=== PATIENT | female | born 1985 | race African-American/Black ===

== ENCOUNTER → 2016-07-24 | Outpatient (CLI) | payer BC, MEDICAID ==
[~2016-07-24] MED LIST: ACHYD1T PO; FRS325T PO; IBP800T PO; NITR-68 PO; PREN-115 PO
--- NOTE | 2016-07-24 17:35 | Diagnostic Imaging Report ---
INDICATION: survey. FINDINGS: Single live intrauterine fetus. Fetus is vertex. Fetus is active with heart rate of 144 beats per minute. Amniotic fluid index is normal. Placenta is posterior with no evidence of abruption or previa. Cervical length is 4.6 cm. anatomical survey is normal. biometric measurements are BPD 4.36 cm, head circumference 17.21 cm, abdominal circumference 14.25 cm, and femur length 3.21 cm. Estimated weight of 312 g. IMPRESSION: 1. Single live intrauterine fetus in vertex presentation with no abnormalities demonstrated. 2. Estimated gestational age by previous ultrasound reported to be 20 weeks 0 days. Current ultrasound is average for 19 week 5 days. Estimated date of delivery by previous reported ultrasound is 12/11/2016. Dictated by: Dictated on workstation # [id number]
== END ==
LOC: RAD 13:02
PROVIDERS: ATTEND Obstetrics & Gynecology
DX: Z34.92 Encounter for supervision of normal pregnancy, unspecified, second trimester (principal)
CPT/HCPCS: 76805; 76817

== ENCOUNTER → 2016-10-29 | Outpatient (CLI) | payer MEDICAID ==
--- NOTE | 2016-10-29 17:51 | Diagnostic Imaging Report ---
INDICATION: Followup growth TECHNIQUE: Multiple real-time grayscale images were obtained over the gravid uterus. COMPARISON: FINDINGS: heart rate is 142 beats per minute. The placenta is fundal. No placenta previa. The amniotic fluid index is 11.3 cm. Biometrical measurements are as follows: Biparietal 8.6 cm, age 34 weeks 5 days. Head circumference 30.78 cm, age 34 weeks 3 days. Abdominal circumference 29.67 cm, age 33 weeks 5 days. Femur length 7.00 cm, age 36 weeks 0 days. Sonographic estimate age: 34 weeks 5 days. This compares to a gestational age of 33 weeks and 6 days based on assigned SAM of 12/11/16. Sonographic estimated date of delivery: 12-05-16. Estimated Weight: 2435 gm (+/- 356 gm). LMP percentile: 62%. heart rate: 142 beats per minute. number: 1 of 1. IMPRESSION: Live intrauterine . Appropriate interval growth. Dictated by: Dictated on workstation # [id number]
== END ==
LOC: RAD 10:10
PROVIDERS: ATTEND Obstetrics & Gynecology
DX: O24.410 Gestational diabetes mellitus in pregnancy, diet controlled (principal); O26.843 Uterine size-date discrepancy, third trimester; Z3A.34 34 weeks gestation of pregnancy
CPT/HCPCS: 76816

== ENCOUNTER → 2016-11-13 | Outpatient (CLI) | payer MEDICAID ==
[~2016-11-13] MED LIST changes: +HYDR-3812 PO; +IBUP-1773 PO; +METF500T4 PO; +PREN-37 PO
[2016-11-13 15:15] VITALS: BP 131/81
--- NOTE | 2016-11-13 17:31 | Diagnostic Imaging Report ---
TECHNIQUE: Multiple real-time grayscale images were obtained over the gravid uterus. COMPARISON: None. INDICATION: Maternal gestational diabetes. FINDINGS: Ultrasonography reveals morris intrauterine gestation. Fetus is in a cephalic presentation with amniotic fluid index of 13 cm. There is no evidence of placenta previa or other placental abnormality. cardiac activity is present with a rate of 156 beats per minute. There is breathing motion and tone present. There is movement of limbs. Bladder distention is documented. Biometrical measurements are as follows: Biparietal 8.9 cm, age 36 weeks 0 days. Head circumference 32.0 cm, age 36 weeks 1 days. Abdominal circumference 32.6 cm, age 36 weeks 4 days. Femur length 7.1 cm, age 36 weeks 2 days. Sonographic estimate age: 36 weeks 2 days. Sonographic estimated date of delivery: 12/09/16. Estimated Weight: 2904 gm (+/- 424 gm). LMP percentile: 60%. heart rate: 156 beats per minute. number: 1 of 1. IMPRESSION: Normal biophysical profile score of 8/8. Dictated by: Dictated on workstation # [id number]
== END ==
LOC: RAD 14:02
PROVIDERS: ATTEND Obstetrics & Gynecology
DX: O24.410 Gestational diabetes mellitus in pregnancy, diet controlled (principal); O34.219 Maternal care for unspecified type scar from previous cesarean delivery; Z3A.36 36 weeks gestation of pregnancy
CPT/HCPCS: 76805; 76819

== ENCOUNTER 2016-12-01 12:41 | Outpatient (CLI) | payer MEDICAID ==
[~2016-12-01] VITALS: Ht 177.8 cm; Wt 109.3 kg
[~2016-12-01 12:41] MED LIST changes: -HYDR-3812 PO; -IBUP-1773 PO; -METF500T4 PO; -PREN-37 PO
[2016-12-01] MEDS ORDERED: PREN-37 PO (12:48)
[2016-12-01] MEDS ORDERED: METF500T4 PO (12:48)
[2016-12-01 12:56] VITALS: BP 131/91
== END 2016-12-01 13:00 | disposition home or self-care (01) ==
LOC: PREOP 12:41
PROVIDERS: ATTEND Obstetrics & Gynecology
DX: O34.219 Maternal care for unspecified type scar from previous cesarean delivery (principal); Z3A.00 Weeks of gestation of pregnancy not specified
CPT/HCPCS: 87081

== ENCOUNTER 2016-12-04 06:16 | Inpatient (IN) | payer MEDICAID ==
[~2016-12-04] VITALS: Ht 177.8 cm; Wt 108.0 kg
[~2016-12-04 06:16] MED LIST changes: +CITRIC ACID/SOB CIT (BICITRA) 30 ML UDC ONE; +FAMOTIDINE 20MG/2ML IV (PEPCID) ONE; +LACTATED RINGERS 1,000 ML IV ONE; +METF500T4 PO; +METOCLOPRAMIDE INJ 10 MG/2 ML (REGLAN) ONE; +NS (IVPB) 50 ML ONE; +PREN-37 PO; +ceFAZolin 1,000 MG (ANCEF) VIAL ONE
--- OUTSIDE RECORDS SUMMARY | 2016-12-04 06:20 | XMS REPORT ---
Author Author CHRISTIANO LOWERY [facility] eClinicalWorks Address Unknown Phone Unavailable Care Team Providers Care Bleach Tester Name Role Phone CHRISTIANO LOWERY CP Unavailable Allergies, Adverse Reactions, Alerts Substance Reaction Event Type N.K.D.A. Info Not Available Non Drug Allergy Problems Problem Type Condition Code Onset Dates Condition Status Problem Anxiety state, unspecified 300.00 Active Problem Family history of diabetes mellitus V18.0 Active Problem General counseling for initiation of other contraceptive measures V25.02 Active Problem Other, multiple, and unspecified sites, superficial foreign body ( splinter), without major open wound and without mention of infection 919.6 Active Assessment Pre-employment health screening examination Z02.1 Active Medications No Known Medications Procedures Procedure Coding System Code Date Office Visit, Est Pt., Level 2 CPT-4 55060 Dec 31, 2015 TB INTRADERMAL TEST CPT-4 08108 Dec 31, 2015 Vital Signs Date/Time: Dec 31, 2015 Cardiac Monitoring Heart Rate 76 bpm Weight 226.9 lbs Height 70 in BMI 32.55 Index Blood Pressure Diastolic 78 mmHg Blood Pressure Systolic 136 mmHg Results Name Result Date Reference Range Unit Abnormality Flag TB INTRADERMAL ----INDURATION (mm) 0 20160103 0 - 15 mm ----Time Read 1430 20160103 ----Date read 01/03/201620160103 ----Injected by Annel JORDAN 20160103 ----Exp. date 20160103 ----Read by Annel JORDAN 20160103 ----Date injected 12/31/201520160103 ----RESULTS (Pos/Neg) Negative 20160103 ----Time Injected 1530 20160103 ----Site Right Forearm 20160103 ----Lot # [id number] Summary Purpose eClinicalWorks Submission
[2016-12-04] MEDS ORDERED: LACTATED RINGERS 1,000 ML IV PRN (06:29)
[2016-12-04] MEDS ORDERED: CATHETER FLUSH 10 ML SYR IV PRN ×2 (06:30→07:30)
[2016-12-04] MEDS ORDERED: METOCLOPRAMIDE INJ 10 MG/2 ML (REGLAN) IV ONE ×2 (06:30→07:30)
[2016-12-04] MEDS ORDERED: FAMOTIDINE 20MG/2ML IV (PEPCID) IV ONE ×2 (06:30→07:30)
[2016-12-04] MEDS ORDERED: CITRIC ACID/SOB CIT (BICITRA) 30 ML UDC PO ONE ×2 (06:30→07:30)
[2016-12-04 07:02] LABS: BASOPHILS % (AUTO) 0 % (0-10); EOSINOPHILS # (AUTO) 0.1 10^3/uL (0.0-0.3); EOSINOPHILS % (AUTO) 1 % (0-10); LYMPHOCYTES # (AUTO) 1.9 X 10^3 (1.0-4.0); LYMPHOCYTES % (AUTO) 23 % (12-44); MEAN CORPUSCULAR HEMOGLOBIN 28 PG (25-34); MEAN CORPUSCULAR HGB CONC 33 G/DL (32-36); MEAN CORPUSCULAR VOLUME 83 FL (80-99); MEAN PLATELET VOLUME 9.8 FL (7.4-10.4); MONOCYTES # (AUTO) 1.2 X 10^3 (0.0-1.0); MONOCYTES % (AUTO) 14 % (0-12); NEUTROPHILS # (AUTO) 5.2 X 10^3 (1.8-7.8); NEUTROPHILS % (AUTO) 62 % (42-75); PLATELET COUNT 219 10^3/uL (130-400); RED BLOOD COUNT 4.86 10^6/uL (4.35-5.85); RED CELL DISTRIBUTION WIDTH 14.9 % (10.0-14.5); WHITE BLOOD COUNT 8.4 10^3/uL (4.3-11.0)
[2016-12-04] MEDS ORDERED: LACTATED RINGERS 1,000 ML IV ONE (07:24)
[2016-12-04] MEDS ORDERED: OXYTOCIN/NORMAL SALINE 1,000 ML IV ONE (07:25)
[2016-12-04] MEDS ORDERED: fentaNYL INJECTION 100 MCG/2 ML AMP INJ ONE (07:30)
[2016-12-04] MEDS ORDERED: diphenhydrAMINE 50 MG/ML INJ (BENADRYL) IV PRN (07:30)
[2016-12-04] MEDS ORDERED: ONDANSETRON 4 MG/2 ML (SDV) Z0FRAN IV PRN (07:30)
[2016-12-04] MEDS ORDERED: METOCLOPRAMIDE INJ 10 MG/2 ML (REGLAN) IV PRN (07:30)
[2016-12-04] MEDS ORDERED: NALOXONE 0.4 MG/ML 1 ML (NARCAN) VIAL IV PRN ×2 (07:30)
--- NOTE | 2016-12-04 07:40 | Progress Note-Pre Operative ---
Pre-Operative Progress Note H&P Reviewed The H&P was reviewed, patient examined and no changes noted. Date Seen by Provider: Dec 04, 2016 Time Seen by Provider: 07:35 Date H&P Reviewed: Dec 04, 2016 Time H&P Reviewed: 07:25 Pre-Operative Diagnosis: previous section, gestational diabetes, A2 ( metformin) RONY SAUCEDA DO Dec 04, 2016 07:40
[2016-12-04] MEDS ORDERED: ceFAZolin INJECTION 1,000 MG in NS (IVPB) 50 ML IV ONE (07:45)
[2016-12-04 07:50] LABS: BILIRUBIN,URINE NEGATIVE (NEGATIVE); KETONES,URINE 3+ (NEGATIVE); LEUKOCYTE ESTERASE ,URINE 2+ (NEGATIVE); NITRITE,URINE NEGATIVE (NEGATIVE); PH,URINE 6.5 (5-9); PROTEIN,URINE NEGATIVE (NEGATIVE); UROBILINOGEN,URINE NORMAL (NORMAL)
[2016-12-04] MEDS ORDERED: MISOPROSTOL 100 MCG (CYTOTEC) TAB PV NR (08:15)
[2016-12-04] MEDS ORDERED: OXYTOCIN/NORMAL SALINE 500 ML IV SCH (09:08)
--- NOTE | 2016-12-04 09:08 | Cesarean Section Operative ---
Procedure Procedure Note Pre-operative Diagnosis: Shey Damon is a 31 /Para 3/2 , Gestational Age 39 weeks with history of previous section, Gestaional diabetes, A2 Post-operative Diagnosis: same Procedure: Repeat low transverse section Physician: RONY SAUCEDA Estimated blood loss: 450 mL Disposition: stable Findings: Viable female , Apgars 8/9, weight 7#10oz, intact placenta, 3vc, normal appearing uterus, tubes, and ovaries. Indications:Shey Damon is a 31 /Para 3/2 ,Gestational Age 39 weeks with history of previous section, Gestaional diabetes, A2 fasting blood sugar 92 Procedure Details: The patient was seen in pre-op and the procedure was discussed with the patient in full, including the risks, benefits, and alternatives. All questions were answered. The patient was taken to the operating room and a time out was performed, verifying patient and procedure. After spinal anesthesia was placed by our anesthesia colleagues, the patient was placed in the dorsal supine with leftward tilt for uterine displacement.~ Her abdomen was then prepped and draped in the typical sterile fashion. A Pfannenstiel skin incision was made using a scalpel and carried down through the underlying fascia. The fascia was incised in the midline and tented up using Karri clamps. On both the inferior and superior fascia side the rectus muscle was dissected off bluntly and sharply using Jara scissors. The peritoneum was identified and entered bluntly in the midline. This was then stretched laterally using manual strength. After entering the abdominal cavity and confirming lack of intraperitoneal adhesions, an extra large Dimitri retractor was placed and the lower uterine segment was visualized. A scalpel was utilized to make a low transverse uterine incision. Amniotomy was performed with an Allis clamp with return of clear fluid. The 's head was grasped and brought to the level of the incision. A silastic suction was placed and helped to facilitate the head delivery. Fundal pressure was applied and infant was delivered without difficulty. Mouth and nares were suctioned with bulb suction. After the umbilical cord was clamped and cut, the infant was handed off to the pediatric staff. A sample of cord blood was then obtained. The placenta was delivered intact via uterine massage. The uterus was cleared of all clots and debris. The uterine incision was closed using 0 Vicryl in a running fashion. A second imbricated layer was placed using 0 Vicryl in a running fashion as well. The bilateral tubes and ovaries appeared normal. The abdominal gutters were cleared of all clots and debris. A final check of the uterine incision showed it to be hemostatic. The peritoneum was closed using 3- 0 Vicryl in a running fashion. The fascia was closed with 0 Vicryl in a running fashion. The subcutaneous space was hemostatic, and irrigated. The subcutaneous space was closed with 3-0 Vicryl in several single interrupted stitches. The skin was then closed using 4-0 Monocryl in a running subcuticular fashion. The skin edges were reapproximated together and were hemostatic. A pressure dressing was applied. All sponge, lap and needle counts were correct at the end of the procedure per nursing. Vitals - Labs Vital Signs - I&O I & O 12/05/16 07:00 Intake Total 50 ml Balance 50 ml Labs Laboratory Tests 12/04/16 06:35: White Blood Count 8.4, Red Blood Count 4.86, Hemoglobin 13.4, Hematocrit 40, Mean Corpuscular Volume 83, Mean Corpuscular Hemoglobin 28, Mean Corpuscular Hemoglobin Concent 33, Red Cell Distribution Width 14.9H, Platelet Count 219, Mean Platelet Volume 9.8, Neutrophils (%) (Auto) 62, Lymphocytes (%) (Auto) 23, Monocytes (%) (Auto) 14H, Eosinophils (%) (Auto) 1, Basophils (%) (Auto) 0, Neutrophils # (Auto) 5.2, Lymphocytes # (Auto) 1.9, Monocytes # (Auto) 1.2H, Eosinophils # (Auto) 0.1, Basophils # (Auto) 0.0 12/04/16 07:35: Urine Color YELLOW, Urine Clarity SLIGHTLY CLOUDY, Urine pH 6.5, Urine Specific Graham 1.010L, Urine Protein NEGATIVE, Urine Glucose (UA) NEGATIVE, Urine Ketones 3+H, Urine Nitrite NEGATIVE, Urine Bilirubin NEGATIVE, Urine Urobilinogen NORMAL, Urine Leukocyte Esterase 2+H, Urine RBC (Auto) NEGATIVE, Urine RBC RARE, Urine WBC 2-5, Urine Squamous Epithelial Cells 5-10, Urine Crystals NONE, Urine Bacteria TRACE, Urine Casts NONE, Urine Mucus NEGATIVE, Urine Culture Indicated NO RONY SAUCEDA DO Dec 04, 2016 09:08
[2016-12-04] MEDS ORDERED: HYDROmorphone (DILAUDID) 2 MG/ML VIAL IVP PRN (09:15)
[2016-12-04] MEDS ORDERED: NS IV 1000 ML 1,000 ML IV SCH (09:15)
[2016-12-04] MEDS ORDERED: TETANUS,DIPTH,PERTUSS P/F (BOOSTRIX) 0.5 ML VIAL IM SCH (09:15)
[2016-12-04] MEDS ORDERED: MEASLES,MUMPS,RUBELLA 1 EA INJ SC SCH (09:15)
[2016-12-04 10:28] VITALS: BP 123/73
[2016-12-04 10:42] VITALS: BP 125/77
[2016-12-04 11:10] VITALS: BP 122/72
[2016-12-04 11:40] VITALS: BP 116/78
[2016-12-04] MEDS: KETOROLAC 30 MG/ML VIAL IVP SCH ×2 (11:44→17:41)
[2016-12-04] MEDS: CATHETER FLUSH 10 ML SYR IV SCH (13:10)
[2016-12-04] MEDS: HYDROcodone/APAP 5 MG/325 MG (LORTAB) TAB PO PRN ×2 (15:36→22:18)
[2016-12-04 16:30] VITALS: BP 126/82
[2016-12-04 21:33] VITALS: BP 122/81
[2016-12-04] MEDS: DOCUSATE SODIUM 100 MG (COLACE) CAP PO SCH (22:18)
[2016-12-05 00:20] VITALS: BP 117/74
[2016-12-05] MEDS: KETOROLAC 30 MG/ML VIAL IVP SCH (00:24)
[2016-12-05] MEDS ORDERED: IBUPROFEN 600 MG (MOTRIN) TAB PO ONE (00:33)
[2016-12-05 05:45] VITALS: BP 124/80
[2016-12-05] MEDS: IBUPROFEN 600 MG (MOTRIN) TAB PO SCH ×3 (05:45→18:20)
[2016-12-05] MEDS: DOCUSATE SODIUM 100 MG (COLACE) CAP PO SCH ×2 (07:58→20:50)
[2016-12-05] MEDS: HYDROcodone/APAP 5 MG/325 MG (LORTAB) TAB PO PRN ×2 (07:59→17:14)
[2016-12-05 08:13] LABS: BASOPHILS % (AUTO) 0 % (0-10); EOSINOPHILS # (AUTO) 0.1 10^3/uL (0.0-0.3); EOSINOPHILS % (AUTO) 1 % (0-10); LYMPHOCYTES % (AUTO) 17 % (12-44); MEAN CORPUSCULAR HEMOGLOBIN 28 PG (25-34); MEAN CORPUSCULAR HGB CONC 33 G/DL (32-36); MEAN CORPUSCULAR VOLUME 84 FL (80-99); MEAN PLATELET VOLUME 9.5 FL (7.4-10.4); MONOCYTES % (AUTO) 9 % (0-12); NEUTROPHILS # (AUTO) 8.6 X 10^3 (1.8-7.8); NEUTROPHILS % (AUTO) 73 % (42-75); PLATELET COUNT 205 10^3/uL (130-400); RED BLOOD COUNT 4.56 10^6/uL (4.35-5.85); RED CELL DISTRIBUTION WIDTH 14.9 % (10.0-14.5); WHITE BLOOD COUNT 11.8 10^3/uL (4.3-11.0)
--- NOTE | 2016-12-05 10:44 | Postpartum Progress Note ---
Post Op Post-operative Day #1 s/p RLTCS, GDM A2 Subjective: Patient is without complaints. Ambulating, voiding after fogey removed. Tolerating a regular diet without nausea or vomiting. Normal lochia. Pain is well controlled with oral pain medications. Passing flatus. breast feeding. Objective: Laboratory Tests Test 12/05/16 08:05 Range/Units White Blood Count 11.8 H 4.3-11.0 10^3/uL Red Blood Count 4.56 4.35-5.85 10^6/uL Hemoglobin 12.6 11.5-16.0 G/DL Hematocrit 38 35-52 % Mean Corpuscular Volume 84 80-99 FL Mean Corpuscular Hemoglobin 28 25-34 PG Mean Corpuscular Hemoglobin Concent 33 32-36 G/DL Red Cell Distribution Width 14.9 H 10.0-14.5 % Platelet Count 205 130-400 10^3/uL Mean Platelet Volume 9.5 7.4-10.4 FL Neutrophils (%) (Auto) 73 42-75 % Lymphocytes (%) (Auto) 17 12-44 % Monocytes (%) (Auto) 9 0-12 % Eosinophils (%) (Auto) 1 0-10 % Basophils (%) (Auto) 0 0-10 % Neutrophils # (Auto) 8.6 H 1.8-7.8 X 10^3 Lymphocytes # (Auto) 2.0 1.0-4.0 X 10^3 Monocytes # (Auto) 1.0 0.0-1.0 X 10^3 Eosinophils # (Auto) 0.1 0.0-0.3 10^3/uL Basophils # (Auto) 0.0 0.0-0.1 10^3/uL Vital Sign - Last 12Hours 12/05/16 12/05/16 00:20 05:45 Temp 97.8 97.3 Pulse 82 91 Resp 18 18 B/P (MAP) 117/74 124/80 O2 Delivery Room Air Room Air Physical Exam: General - Alert and oriented, no apparent distress Abdomen - Soft, appropriately tender to palpation, non-distended, fundus firm at umbilicus Incision - clean, dry and intact; no erythema or induration, no drainage. Some blistering from the bandage. Extremities - no edema, negative Thierry's bilaterally Assessment: 1. post-operative day # 1, status post RLTCS. Recovering well, hemodynamically stable 2. GDM A2, fasting BS not done this am. Plan: Routine post-operative care. Encourage breast feeding. Encourage ambulation. VTE prophylaxis: SCDs. Ferrous sulfate supplementation. FSBS tomorrow am. Monitor the incision and blister/reaction Plan for discharge tomorrow Vitals - Labs Vital Signs - I&O Vital Signs Date Time Temp Pulse Resp B/P (MAP) Pulse Ox O2 Delivery O2 Flow Rate FiO2 12/05/16 05:45 97.3 91 18 124/80 Room Air 12/05/16 00:20 97.8 82 18 117/74 Room Air 12/04/16 21:33 98.1 88 18 122/81 95 Room Air 12/04/16 16:30 97.8 99 16 126/82 96 Room Air 12/04/16 11:40 98.4 69 16 116/78 98 Room Air 12/04/16 11:10 97.9 91 18 122/72 98 Room Air Labs Laboratory Tests 12/05/16 08:05: White Blood Count 11.8H, Red Blood Count 4.56, Hemoglobin 12.6, Hematocrit 38, Mean Corpuscular Volume 84, Mean Corpuscular Hemoglobin 28, Mean Corpuscular Hemoglobin Concent 33, Red Cell Distribution Width 14.9H, Platelet Count 205, Mean Platelet Volume 9.5, Neutrophils (%) (Auto) 73, Lymphocytes (%) (Auto) 17, Monocytes (%) (Auto) 9, Eosinophils (%) (Auto) 1, Basophils (%) (Auto) 0, Neutrophils # (Auto) 8.6H, Lymphocytes # (Auto) 2.0, Monocytes # (Auto) 1.0, Eosinophils # (Auto) 0.1, Basophils # (Auto) 0.0 RONY SAUCEDA DO Dec 05, 2016 10:44
[2016-12-05 12:25] VITALS: BP 128/78
--- NOTE | 2016-12-05 13:06 | Anesthesia-Regional Post-Op ---
Regional Patient Condition Mental Status: Alert, Oriented x3 Circulation: Same as Pre-Op Headache: Absent Sensation: Full Recovery Motor Block: Absent Post Op Complications Complications None Follow Up Care/Instructions Patient Instructions None needed. Anesthesia/Patient Condition Patient is doing well, no complaints, stable vital signs, no apparent adverse anesthesia problems. No complications reported per nursing. SANDRA DEMARCO CRNA Dec 05, 2016 13:06
[2016-12-05] MEDS: CATHETER FLUSH 10 ML SYR IV SCH ×2 (14:45→14:46)
[2016-12-05] MEDS: FERROUS SULF 325 MG (IRON) TAB PO SCH (17:29)
[2016-12-05 17:31] VITALS: BP 126/85
[2016-12-06 00:12] VITALS: BP 123/74
[2016-12-06] MEDS: HYDROcodone/APAP 5 MG/325 MG (LORTAB) TAB PO PRN ×2 (00:12→06:18)
[2016-12-06] MEDS: IBUPROFEN 600 MG (MOTRIN) TAB PO SCH ×3 (00:12→14:20)
[2016-12-06 06:40] VITALS: BP 114/78
[2016-12-06 09:35] VITALS: BP 126/76
[2016-12-06] MEDS: DOCUSATE SODIUM 100 MG (COLACE) CAP PO SCH (09:37)
[2016-12-06] MEDS: FERROUS SULF 325 MG (IRON) TAB PO SCH (09:37)
--- NOTE | 2016-12-06 11:23 | Postpartum Progress Note ---
Post Op Post-operative Day #1 s/p RLTCS GDM Subjective: Patient is without complaints. Ambulating, voiding after menchaca removed. Tolerating a regular diet without nausea or vomiting. Normal lochia. Pain is well controlled with oral pain medications. Passing flatus. breast feeding. Objective: fasting BS today is 78 Vital Sign - Last 12Hours 12/06/16 12/06/16 00:12 06:40 Temp 97.7 97.7 Pulse 91 87 Resp 18 18 B/P (MAP) 123/74 114/78 Pulse Ox 100 97 O2 Delivery Room Air Room Air Physical Exam: General - Alert and oriented, no apparent distress Abdomen - Soft, appropriately tender to palpation, non-distended, fundus firm at umbilicus Incision - clean, dry and intact; no erythema or induration, no drainage Extremities - no edema, negative Thierry's bilaterally Assessment: 1. post-operative day # 2, status post RLTCS 2. GDM - stable. Recovering well, hemodynamically stable ] Plan: Routine post-operative care. Encourage breast feeding. Encourage ambulation. VTE prophylaxis: SCDs. Plan for discharge today Vitals - Labs Vital Signs - I&O Vital Signs Date Time Temp Pulse Resp B/P (MAP) Pulse Ox O2 Delivery O2 Flow Rate FiO2 12/06/16 06:40 97.7 87 18 114/78 97 Room Air 12/06/16 00:12 97.7 91 18 123/74 100 Room Air 12/05/16 17:31 97.4 89 20 126/85 100 Room Air 12/05/16 12:25 98.3 85 18 128/78 96 Room Air RONY SAUCEDA DO Dec 06, 2016 11:23
[2016-12-06] MEDS ORDERED: HYDR-3812 PO (11:24)
[2016-12-06] MEDS ORDERED: IBUP-1773 PO (11:24)
--- NOTE | 2016-12-06 11:27 | Discharge Inst-Women's Service ---
Discharge Inst-Women's Serv Depart Medication/Instructions New, Converted or Re-Newed RX: RX on Chart Final Diagnosis repeat section gestational diabetes, A2 Consults/Follow Up Additional Follow Up: Yes (1- week for incision check. Call office to set up appointment with Marj or Williams. 6 weeks for pp exam. ) Activity Activity: Activity as Tolerated Driving Instructions: No Driving for 1 Week NO SMOKING: NO SMOKING Nothing Inside Vagina: No Douching, No Blanchard, No Tampons Diet Discharge Diet: No Restrictions Symptoms to Report to : Swelling Increased, Bleeding Excessive, Pain Increased, Fever Over 101 Degrees F, Vaginal Bleeding Increase, Cramps in Feet or Legs, Vaginal Discharge Foul For Any Problems or Questions: Contact Your Physician Skin/Wound Care Infection Signs and Symptoms: Increased Redness, Foul Odor of Wound, Increased Drainage, Skin Itchy or Has a Rash, Increased Swelling, Temperature Above 101 F Operative Area Clean and Dry: Keep Incision Clean/Dry Stitches/Andrew/Dermabond: Dermabond Bathing Instructions: RONY Santiago DO Dec 06, 2016 11:27
[2016-12-06 14:23] VITALS: BP 137/88
== END 2016-12-06 14:55 | disposition home or self-care (01) | DRG 766 ==
LOC: LDRP 06:16 → WS 10:20
PROVIDERS: ADMIT Obstetrics & Gynecology; ATTEND Obstetrics & Gynecology
PROC: 10D00Z1 Extraction of Products of Conception, Low, Open Approach (ICD-10-PCS; principal; 2016-12-04 07:47)
DX: O34.211 Maternal care for low transverse scar from previous cesarean delivery (principal); O24.429 Gestational diabetes mellitus in childbirth, unspecified control; Z23 Encounter for immunization; Z3A.39 39 weeks gestation of pregnancy; Z37.0 Single live birth
CPT/HCPCS: 36415; 81000; 82962; 85025; 86850; 86900; 86901; 90715; 94664

== ENCOUNTER → 2017-01-18 | Outpatient (CLI) | payer MEDICAID ==
[~2017-01-18] MED LIST changes: -CITRIC ACID/SOB CIT (BICITRA) 30 ML UDC ONE; -FAMOTIDINE 20MG/2ML IV (PEPCID) ONE; +HYDR-3812 PO; +IBUP-1773 PO; -LACTATED RINGERS 1,000 ML IV ONE; -METOCLOPRAMIDE INJ 10 MG/2 ML (REGLAN) ONE; -NS (IVPB) 50 ML ONE; -ceFAZolin 1,000 MG (ANCEF) VIAL ONE
== END ==
LOC: LAB 09:09
PROVIDERS: ATTEND Obstetrics & Gynecology
DX: O24.410 Gestational diabetes mellitus in pregnancy, diet controlled (principal); Z3A.00 Weeks of gestation of pregnancy not specified
CPT/HCPCS: 36415; 82951; 82952; 82962

== ENCOUNTER → 2020-09-26 | Outpatient (CLI) | payer MEDICAID, OTHER ==
[~2020-09-26] MED LIST changes: +ACHD5005 PO; +GADOBUTROL 10 MMOL/10 ML (GADAVIST) VIAL IV ONE; -HYDR-3812 PO; +METF-397 PO; -METF500T4 PO
--- NOTE | 2020-09-26 11:33 | Diagnostic Imaging Report ---
CLINICAL INDICATION: Patient with left-sided head tingling. EXAM: MRI of the brain performed without and with 10 cc of Gadavist IV contrast. Sequences include axial DWI, ADC map, axial gradient echo, axial T2, axial FLAIR, axial T1, axial T1 post IV contrast, coronal T1 fat-sat post IV contrast, and sagittal T1 post IV contrast. COMPARISON: None. FINDINGS: There is no evidence of acute cerebral infarct, intracranial hemorrhage, or gross mass effect. There is no abnormal IV contrast enhancement. The brain parenchymal volume appears appropriate for patient's age. There is normal nuno-white matter distinction. There is no significant midline shift or herniation. The [place] vascular structures show no gross abnormality as visualized. The pituitary gland, sella, and suprasellar regions are unremarkable as visualized. There is no evidence of hydrocephalus. The basal cisterns are unremarkable. The skull, extracranial soft tissue, and orbits are unremarkable. There is small mucous retention cyst involving left maxillary sinus. There is mild mucosal thickening involving the ethmoid sinus. Temporal bones show no significant abnormality. IMPRESSION: Mild paranasal sinus disease. Otherwise, unremarkable MRI of the brain. Dictated by: Dictated on workstation # [id number]
== END ==
LOC: RAD 11:00
PROVIDERS: ATTEND Pediatrics
DX: G50.0 Trigeminal neuralgia (principal); J34.89 Other specified disorders of nose and nasal sinuses
CPT/HCPCS: 70553

== ENCOUNTER → 2021-02-11 | Outpatient (CLI) | payer OTHER ==
[~2021-02-11] MED LIST changes: -GADOBUTROL 10 MMOL/10 ML (GADAVIST) VIAL IV ONE
--- NOTE | 2021-02-11 12:14 | Diagnostic Imaging Report ---
PROCEDURE: US Thyroid. TECHNIQUE: Multiple real-time grayscale images were obtained of the thyroid in various projections. INDICATION: Thyroid nodule. FINDINGS: Right and left lobes of the thyroid gland are prominent measuring 5.7 x 1.4 x 2.5 cm and 5.5 x 1.7 x 2.4 cm, respectively. There is diffuse heterogeneous appearance of the thyroid parenchyma. A discrete mass is not identified. There is no evidence of periglandular abnormality. IMPRESSION: Mildly enlarged heterogeneous thyroid gland without discrete mass. This may be on the basis of multinodular goiter. There is no associated hyperemia to indicate acute thyroiditis. Dictated by: Dictated on workstation # [id number]
== END ==
LOC: RAD 11:15
PROVIDERS: ATTEND Family Medicine
DX: E04.1 Nontoxic single thyroid nodule (principal)
CPT/HCPCS: 76536

== ENCOUNTER → 2021-02-12 | Outpatient (CLI) | payer OTHER ==
[2021-02-12 10:37] LABS: FREE T4 (FREE THYROXINE) 0.92 NG/DL (0.70-1.48)
== END ==
LOC: LAB 09:31
PROVIDERS: ATTEND Family Medicine
DX: E04.1 Nontoxic single thyroid nodule (principal)
CPT/HCPCS: 36415; 84439; 84443; 84480

== ENCOUNTER → 2022-03-18 | Outpatient (CLI) | payer OTHER ==
--- NOTE | 2022-03-18 17:43 | Diagnostic Imaging Report ---
PROCEDURE: US Thyroid. TECHNIQUE: Multiple real-time grayscale images were obtained of the thyroid in various projections. INDICATION: Enlargement of the right thyroid lobe. Correlation is made with prior thyroid ultrasound from 02/11/2021. FINDINGS: Right lobe of the thyroid measures 5.7 x 2.4 x 2.3 cm, and left lobe measures 5.4 x 1.6 x 2.3 cm. Isthmus is 2 mm in thickness. Thyroid remains heterogeneous. No discrete thyroid mass is detected. IMPRESSION: Thyroid heterogeneity. No discrete thyroid mass is detected. Dictated by: Dictated on workstation # [id number]
== END ==
LOC: RAD 13:17
PROVIDERS: ATTEND Family Medicine
DX: E04.9 Nontoxic goiter, unspecified (principal)
CPT/HCPCS: 76536